=== PATIENT | female | born 1945 | race Caucasian/White ===

== ENCOUNTER 2021-03-26 08:00 | Outpatient (CLI) | payer MEDICARE, OTHER ==
--- NOTE | 2021-03-26 09:39 | XRAY Report ---
PROCEDURE: Lumbar Spine 2 View INDICATIONS: LUMBAR RADICULOPATHY TECHNIQUE: 2 views of the lumbar spine were acquired. COMPARISON: None. FINDINGS: Bones: There is partial lumbarization of S1. There is mild degenerative anterolisthesis of L5 on S1 m easuring 7 mm. There is facet arthropathy at L5-S1. There is normal bony alignment. No vertebral bod y compression fractures. No suspicious bony lesions. Soft tissues: Overlying bowel gas pattern is normal. No suspicious soft tissue calcifications. Vignesh cified uterine fibroid in the left pelvis. IMPRESSION: 1. Partial lumbarization of S1. 2. Facet arthropathy at L5-S1 with mild degenerative anterolisthesis of L5 on S1. 3. No evidence of acute bony abnormality of the lumbar spine. 4. Calcified uterine fibroid incidentally noted in the left pelvis. Reviewed by: Kishore Bunch MD on 03/26/2021 9:38 AM PDT Approved by: Kishore Bunch MD on 03/26/2021 9:38 AM PDT Station ID: [id number]
== END 2021-03-26 23:59 | disposition home or self-care (01) ==
LOC: DI.S 08:00
PROVIDERS: ATTEND Physician Assistant
DX: M47.817 Spondylosis without myelopathy or radiculopathy, lumbosacral region (principal); M43.17 Spondylolisthesis, lumbosacral region

== ENCOUNTER 2021-09-02 07:00 | Outpatient (CLI) | payer MEDICARE, OTHER ==
[2021-09-02 20:02] LABS: BILIRUBIN,URINE NEGATIVE (NEGATIVE); GLUCOSE, URINE (UA) NEGATIVE (NEGATIVE); KETONES,URINE (UA) NEGATIVE (NEGATIVE); LEUKOCYTE ESTERASE, URINE SMALL (NEGATIVE); NITRITE,URINE NEGATIVE (NEGATIVE); OCCULT BLOOD,URINE NEGATIVE (NEGATIVE); PH,URINE 5.5 PH (5.0-7.5); PROTEIN,URINE NEGATIVE (NEGATIVE); UROBILINOGEN,URINE 0.2 (NORMAL) E.U./dL (NORMAL)
[2021-09-02 20:22] LABS: CLARITY,URINE CLEAR (CLEAR)
[2021-09-02 20:24] LABS: BACTERIA,URINE None Seen /HPF (None Seen); CRYSTALS,URINE 3-5 Uric Acid /LPF; RBC,URINE 0-5 /HPF (0-5); SQUAMOUS EPITHELIAL CELL,UR RARE Squamous (<= Few)
== END 2021-09-02 23:59 | disposition home or self-care (01) ==
LOC: LAB 07:00
PROVIDERS: ATTEND Emergency Medicine
DX: R10.31 Right lower quadrant pain (principal)
CPT/HCPCS: 81001; 87086